=== PATIENT | female | born 1980 | race Caucasian/White ===

== ENCOUNTER 2020-07-09 08:51 | Outpatient (CLI) | payer BC ==
[2020-07-14] MEDS ORDERED: EPINEPHRINE 1 MG/ML, 1ML ONE (06:48)
[2020-07-14] MEDS ORDERED: BUPIVACAINE/PF 0.25% ONE (06:48)
[2020-07-14] MEDS ORDERED: INDIGO CARMINE 0.8%, 5ML ONE (09:33)
== END 2020-07-09 23:59 | disposition home or self-care (01) ==
LOC: STAR 08:51
PROVIDERS: ATTEND Anesthesiology
DX: Z20.828 Contact with and (suspected) exposure to other viral communicable diseases (principal)
CPT/HCPCS: 87635

== ENCOUNTER 2020-07-14 05:44 | Day surgery (SDC) | payer BC ==
[~2020-07-14] VITALS: Ht 170.2 cm; Wt 80.8 kg
[2020-07-14] MEDS ORDERED: CHLORHEXIDINE 15 ML UDC ONE (06:20)
[2020-07-14] MEDS ORDERED: LACTATED RINGERS 1,000 ML IV SCH (06:30)
[2020-07-14] MEDS ORDERED: LIDOCAINE-MPF 1%, 2ML INFIL ONE (06:30)
[2020-07-14] MEDS ORDERED: CHLORHEXIDINE 15 ML UDC MM ONE (06:30)
[2020-07-14 06:36] LABS: HCG UR SG 1.012 (1.003-1.030)
[2020-07-14 06:45] VITALS: BP 112/76
[2020-07-14 06:50] LABS: BASOPHILS % (AUTO) 1 % (0-1); EOSINOPHILS % (AUTO) 2 % (1-7); LYMPHOCYTES % (AUTO) 30 % (22-44); MEAN CORPUSCULAR HEMOGLOBIN 32.6 pg (27.0-34.8); MEAN CORPUSCULAR HGB CONC 34.6 g/dL (32.4-35.8); MEAN PLATELET VOLUME 7.7 fL (7.4-10.4); MONOCYTES % (AUTO) 9 % (2-9); NEUTROPHILS % (AUTO) 58 % (42-75); PLATELET COUNT 258 x10^3/uL (130-400); RED BLOOD COUNT 4.69 x10^6/uL (3.82-5.3); RED CELL DISTRIBUTION WIDTH 13.4 % (9.6-15.2)
[2020-07-14] MEDS ORDERED: NONE PER PT (07:01)
[2020-07-14] MEDS ORDERED: FENTANYL PF 250 MCG/5ML ONE (07:02)
[2020-07-14 07:14] LABS: MD NO
[2020-07-14] MEDS ORDERED: BUPIVACAINE/PF-EPI 0.25% 1:200K INFIL ONE (08:12)
[2020-07-14] MEDS ORDERED: OXYcodone 5 MG/5 ML ORAL.SOL UDC PO PRN (08:30)
[2020-07-14] MEDS ORDERED: ACETAMINOPHEN 325 MG TABLET PO PRN (08:30)
[2020-07-14] MEDS ORDERED: hydrALAzine 20 MG/ML, 1ML IV PRN (08:30)
[2020-07-14] MEDS ORDERED: LABETALOL 5MG/ML, 20ML IV PRN (08:30)
[2020-07-14] MEDS ORDERED: HYDROmorphone 1 MG/ML, 1ML INJ IVPush PRN (08:30)
[2020-07-14] MEDS ORDERED: ONDANSETRON 2MG/ML, 2ML IVPush PRN (08:30)
[2020-07-14] MEDS ORDERED: KETOROLAC 30 MG/1 ML ONE (09:59)
[2020-07-14] MEDS ORDERED: ROCURONIUM 10MG/ML,5ML ONE (09:59)
[2020-07-14] MEDS ORDERED: CEFAZOLIN 1,000 MG ONE (09:59)
[2020-07-14] MEDS ORDERED: PROPOFOL 10 MG/ML, 20ML ONE (09:59)
[2020-07-14] MEDS ORDERED: SUCCINYLCHOLINE 20 MG/ML, 10ML ONE (09:59)
[2020-07-14] MEDS ORDERED: GLYCOPYRROLATE 0.2MG/1ML, 5ML ONE (09:59)
[2020-07-14] MEDS ORDERED: NEOSTIGMINE 1 MG/ML, 10ML ONE (09:59)
[2020-07-14] MEDS ORDERED: ONDANSETRON 2MG/ML, 2ML ONE (09:59)
[2020-07-14] MEDS ORDERED: DEXAMETHASONE 4 MG/ML, 5ML ONE (09:59)
[2020-07-14] MEDS: FENTANYL PF 100 MCG/2ML IV PRN ×2 (10:21→11:00)
[2020-07-14] MEDS ORDERED: FENTANYL PF 100 MCG/2ML ONE (11:07)
[2020-07-14] MEDS ORDERED: MEPERIDINE/PF 25MG/ML,1ML ONE (11:09)
== END 2020-07-14 13:55 | disposition home or self-care (01) ==
LOC: OUT 05:44
PROVIDERS: ATTEND Obstetrics & Gynecology
DX: N93.9 Abnormal uterine and vaginal bleeding, unspecified (principal); N94.6 Dysmenorrhea, unspecified; D25.1 Intramural leiomyoma of uterus; N80.3 Endometriosis of pelvic peritoneum; N80.0 Endometriosis of uterus; N73.6 Female pelvic peritoneal adhesions (postinfective); N30.10 Interstitial cystitis (chronic) without hematuria; F12.90 Cannabis use, unspecified, uncomplicated; Z88.5 Allergy status to narcotic agent; Z98.890 Other specified postprocedural states
CPT/HCPCS: 36415; 58552; 81025; 85025; 88307; J0171; J0330; J0690; J1100; J1885; J2405; J2704; J2710; J3010; J7120